=== PATIENT | female | born 1960 | race Caucasian/White ===

== ENCOUNTER 2023-10-03 13:08 | Emergency (ER) | payer OTHER, SELFPAY ==
[2023-10-03] VITALS (16 sets, daily range): BP systolic 155–180; BP diastolic 72–116; PULSE 65–83; RESP 16–19; TEMP 36.4; O2SAT 90–98; BMI 30.5
--- NOTE | 2023-10-03 13:16 | DI.RAD.S_ITS ---
PROCEDURE: XR HIP W PEL IF DONE LT 2V INDICATIONS: Pain after fall TECHNIQUE: 2 views of the hip were acquired. COMPARISON: None. FINDINGS: Bones: No fractures or dislocations. No suspicious bony lesions. The visualized pelvic ring appears intact. Soft tissues: No suspicious soft tissue calcifications or masses. IMPRESSION: No displaced fracture. If there remains a high clinical concern or the patient cannot bear weight, consider cross-sectional imaging to exclude an occult fracture. Dictated by: Abilio Jaime M.D. on 10/03/2023 at 14:00 Approved by: Abilio Jaime M.D. on 10/03/2023 at 14:01
--- NOTE | 2023-10-03 13:55 | ED_ITS ---
HPI - Extremity Injury (Lower) General Chief Complaint: Extremity Injury, Lower Stated Complaint: L hip px Time Seen by Provider: 10/03/23 13:16 Source: patient and EMS Mode of arrival: EMS History of Present Illness HPI Narrative: Patient is a 63-year-old female who arrived by EMS for evaluation of a left hip pain. Patient states she was trying to help her lift a propane tank up into the back of the truck. She states that she tried to move. She felt like her left foot was planted on the ground. She felt/heard a crack in her left hip and then fell. The propane tank did not land on top of her. She reports no injuries from the event. Has discomfort in the back of her hip and in her groin areas since the event. She did receive pain medication by EMS prior to arrival. Related Data Previous Rx's Medication Instructions Recorded hydrocodone 5 mg-acetaminophen 325 1 tab PO Q4-6H PRN pain #10 tabs 10/03/23 mg tablet Allergies Allergy/AdvReac Type Severity Reaction Status Date / Time aspirin Allergy Hives Verified 10/03/23 14:08 Review of Systems Musculoskeletal Musculoskeletal: Reports system reviewed and no additional complaints, except as documented Integumentary/Breasts Skin/Breast: Reports system reviewed and no additional complaints, except as documented Neurologic Neurologic: Reports system reviewed and no additional complaints, except as documented Hematologic/Lymphatic On Anticoagulants: No Patient History Social History Smoking Status: Never smoker Smoking Status: Never smoker alcohol intake frequency: a few times a month Substance Use Type: does not use Exam Initial Vital Signs Initial Vital Signs: Vital Signs Temperature 97.6 F 10/03/23 13:10 Pulse Rate 77 10/03/23 13:10 Respiratory Rate 16 10/03/23 13:10 Blood Pressure 157/77 H 10/03/23 13:10 Pulse Oximetry 95 10/03/23 13:10 Oxygen Delivery Method Room Air 10/03/23 13:10 HENMT Head: normal to inspection and normocephalic GI Inspection: normal to inspection and non-distended Palpation: soft and No tender Neuro Speech: speech normal Sensory Exam: no sensory deficits noted Extrem Other: Left knee and left elbow unremarkable. She does have tenderness to palpation in the posterior aspect of the left hip. She is most comfortable with the hip in flexion. She can not straighten the hip because of discomfort in the groin in the back of the hip. Course Orders Ordered: ED Orders 10/03/23 13:16 XR hip w pel if done LT 2V Stat 10/03/23 14:28 CT pelvis wo con Stat Discontinued Medications Hydromorphone HCl (Hydromorphone 0.5 Mg Inj) 0.5 mg IV NOW ONE Stop: 10/03/23 13:55 Last Admin: 10/03/23 14:08 Dose: 0.5 mg Documented By: DANIS Hydromorphone HCl (Hydromorphone 0.5 Mg Inj) 0.5 mg IV NOW ONE Stop: 10/03/23 15:37 Last Admin: 10/03/23 16:04 Dose: 0.5 mg Documented By: DANIS Ketorolac Tromethamine (Ketorolac 30 Mg/Ml Vial) 30 mg IV NOW ONE Stop: 10/03/23 15:37 Last Admin: 10/03/23 16:03 Dose: 30 mg Documented By: DANIS Ondansetron HCl (Ondansetron 4 Mg/2 Ml Inj) 4 mg IV NOW ONE Stop: 10/03/23 16:23 Last Admin: 10/03/23 16:40 Dose: 4 mg Documented By: DANIS Vital Signs Vital signs: Vital Signs - 8 hr 10/03/23 13:10 10/03/23 13:17 10/03/23 13:17 Temperature 97.6 F Pulse Rate 77 74 Respiratory Rate 16 Blood Pressure 157/77 H 157/77 H Pulse Oximetry 95 95 Oxygen Delivery Method Room Air 10/03/23 13:44 10/03/23 14:01 10/03/23 14:02 Temperature Pulse Rate 67 65 Respiratory Rate Blood Pressure Pulse Oximetry 96 97 96 Oxygen Delivery Method 10/03/23 14:02 10/03/23 14:36 10/03/23 14:37 Temperature Pulse Rate 72 70 Respiratory Rate Blood Pressure 173/80 H Pulse Oximetry 95 97 Oxygen Delivery Method 10/03/23 14:37 10/03/23 15:00 10/03/23 15:00 Temperature Pulse Rate 66 Respiratory Rate Blood Pressure 180/82 H 165/72 H Pulse Oximetry 94 Oxygen Delivery Method 10/03/23 15:30 10/03/23 15:30 10/03/23 16:00 Temperature Pulse Rate 69 71 Respiratory Rate Blood Pressure 158/73 H Pulse Oximetry 95 96 Oxygen Delivery Method 10/03/23 16:01 10/03/23 16:01 10/03/23 16:04 Temperature Pulse Rate 71 Respiratory Rate 19 Blood Pressure 155/116 H 160/107 H Pulse Oximetry 97 Oxygen Delivery Method Room Air 10/03/23 16:04 10/03/23 16:30 Temperature Pulse Rate 69 78 Respiratory Rate Blood Pressure Pulse Oximetry 95 98 Oxygen Delivery Method MDM - Extremity Injury (Lower) Imaging Data Extremity x-ray #1: Radiologist's Impression: PROCEDURE: XR HIP W PEL IF DONE LT 2V INDICATIONS: Pain after fall TECHNIQUE: 2 views of the hip were acquired. COMPARISON: None. FINDINGS: Bones: No fractures or dislocations. No suspicious bony lesions. The visualized pelvic ring appears intact. Soft tissues: No suspicious soft tissue calcifications or masses. IMPRESSION: No displaced fracture. If there remains a high clinical concern or the patient cannot bear weight, consider cross-sectional imaging to exclude an occult fracture. CT pelvis: Radiologist's Impression: PROCEDURE: CT PEL WO CON INDICATIONS: Left hip pain after fall TECHNIQUE: Noncontrast 3 mm axial sections acquired through the bony pelvis, with coronal and sagittal reformatting. COMPARISON: None. FINDINGS: Image quality: Excellent. Bones: No displaced fracture. Left hip joint is normally aligned, without significant effusion. Soft tissues: Unremarkable bowel he and bladder. Hysterectomy. Atrophic ovary. Right ovary not visualized. IMPRESSION: No displaced fracture. [facility] Narrative Medical decision making narrative: Initial x-ray of pelvis is unremarkable however patient had difficulty moving her hip. She felt much better with her hip and flexion and knee and flexion as well. Subsequent CT scan shows no fracture as well. Upon further evaluation she has tenderness along the medial and lateral hamstring. She feels much better with her knee in flexion. I suspect more with further evaluation that th is is a hamstring injury. I do not have overt findings of a hamstring tear. Patient received multiple doses of pain medication and this did seem to improve things. Plan will be to discharge home with either a walker or crutches depending on what feels better for her to get around. Pain medication. Conservative measures for now and follow-up with her primary doctor. Discharge Plan Departure Patient Disposition: Home Clinical Impression: Left hamstring injury Instructions: DI for Hamstring Strain Activity Restrictions/Additional Instructions: The imaging studies do not show any signs of a fracture or dislocation. I suspect that you do have a hamstring injury. You can walk on your left leg as tolerated although you will find that it is probably most comfortable with your knee bent and your hip flexed. Recommend you contact your primary doctor. Use the pain medication as needed. Return to the emergency department for new symptoms Prescriptions: New hydrocodone-acetaminophen 5-325 mg tablet 1 tab PO Q4-6H PRN (Reason: pain) Qty: 10 0RF Stand Alone Forms: Patient Portal/API
[2023-10-03] MEDS: HYDROMORPHONE 0.5 MG INJ IV ×2 (14:08→16:04)
--- NOTE | 2023-10-03 14:28 | DI.CT.S_ITS ---
PROCEDURE: CT PEL WO CON INDICATIONS: Left hip pain after fall TECHNIQUE: Noncontrast 3 mm axial sections acquired through the bony pelvis, with coronal and sagittal reformatting. COMPARISON: None. FINDINGS: Image quality: Excellent. Bones: No displaced fracture. Left hip joint is normally aligned, without significant effusion. Soft tissues: Unremarkable bowel he and bladder. Hysterectomy. Atrophic ovary. Right ovary not visualized. IMPRESSION: No displaced fracture. Dictated by: Abilio Jaime M.D. on 10/03/2023 at 15:13 Approved by: Abilio Jaime M.D. on 10/03/2023 at 15:15
[2023-10-03] MEDS: KETOROLAC 30 MG/ML VIAL IV (16:03)
[2023-10-03] MEDS: ONDANSETRON 4 MG/2 ML INJ IV (16:40)
--- NOTE | 2023-10-03 16:51 | PC.NURSE ---
pt attempted to ambulate. unable to ambulate or stand. pt is holding her left hamstring with her legs curled. dr. mcpherson aware
== END 2023-10-03 18:32 | disposition home or self-care (01) ==
PROVIDERS: Emergency Provider Emergency Medicine
DX: S76.302A Unspecified injury of muscle, fascia and tendon of the posterior muscle group at thigh level, left thigh, initial encounter (principal); W19.XXXA Unspecified fall, initial encounter
CPT/HCPCS: 72192; 73502; 96374; 96375; 96376; 99284; J1170; J1885; J2405